=== PATIENT | female | born 1960 | race Caucasian/White ===

== ENCOUNTER 2016-06-03 16:35 | Emergency (ER) | payer BC ==
[2016-06-03 18:10] VITALS: BP 141/80
--- NOTE | 2016-06-03 18:41 | UC ---
Lower Extremity/Ankle HPI - HPI Summary HPI Summary: 55 y/o female c/o left dorsal discomfort and swelling over the third-fifth proximal metatarsal area x 3 weeks. Pain to palpation, and with dorsi-flexion of the left foot. Symptoms have failed to improve. - History of Current Complaint Chief Complaint: UC Stated Complaint: FOOT INJURY Time Seen by Provider: 06/03/16 18:26 Hx Obtained From: Patient Hx Last Menstrual Period: 3 months ago ?: No Onset/Duration: Gradual Onset Severity Initially: Mild Severity Currently: Mild Pain Intensity: 3 Pain Scale Used: 0-10 Numeric Aggravating Factor(s): Ambulation Alleviating Factor(s): Rest, Elevation, OTC Meds Able to Bear Weight: Yes - Allergies/Home Medications Allergies/Adverse Reactions: Allergies Allergy/AdvReac Type Severity Reaction Status Date / Time No Known Allergies Allergy Verified 06/03/16 18:03 PMH/Surg Hx/FS Hx/Imm Hx Previously Healthy: Yes Endocrine History Of: Reports: Thyroid Disease - Nodule Denies: Diabetes Cardiovascular History Of: Denies: Cardiac Disorders, Hypertension Respiratory History Of: Denies: COPD, Asthma GI/ History Of: Denies: Ulcer Cancer History Of: Denies: Breast Cancer - Surgical History Surgical History: Yes Surgery Procedure, Year, and Place: 1995 - Family History Known Family History: Positive: None - Social History Occupation: Employed Full-time Lives: With Family Alcohol Use: Daily Alcohol Amount: most days Substance Use Type: None Smoking Status (MU): Never Smoked Tobacco Have You Smoked in the Last Year: No - Immunization History Most Recent Influenza Vaccination: fall 2015 Review of Systems Constitutional: Negative Skin: Other - Swelling over the 3rd-5th left metatarsals Eyes: Negative ENT: Negative Respiratory: Negative Cardiovascular: Negative Gastrointestinal: Negative Genitourinary: Negative Motor: Negative, Other - Full ROM, equal strength b/l in lower extremities. Movement increases pain. Neurovascular: Negative Musculoskeletal: Edema - Left dorsal 3rd-5th metatarsals Neurological: Negative Psychological: Negative All Other Systems Reviewed And Are Negative: Yes Physical Exam Triage Information Reviewed: Yes Appearance: Well-Appearing, No Pain Distress, Well-Nourished Vital Signs: Initial Vital Signs Temp 98.0 F 06/03/16 18:04 Pulse 58 06/03/16 18:04 Resp 16 06/03/16 18:04 BP 141/80 06/03/16 18:04 Pulse Ox 98 06/03/16 18:04 Vital Signs Reviewed: Yes Eye Exam: Normal Eyes: Positive: Conjunctiva Clear ENT Exam: Normal ENT: Positive: Normal ENT inspection, Hearing grossly normal, Pharynx normal, TMs normal Dental Exam: Normal Neck exam: Normal Neck: Positive: Supple, Nontender, No Lymphadenopathy Respiratory: Positive: Chest non-tender, Lungs clear, Normal breath sounds, No respiratory distress Cardiovascular: Positive: RRR, No Murmur, Pulses Normal Abdominal Exam: Normal Abdomen Description: Positive: Nontender, No Organomegaly, Soft Bowel Sounds: Positive: Present Musculoskeletal: Positive: Strength Intact, ROM Intact, Edema @ - Left metatarsal area, Other: - tender L distal 3rd - 5th MTs Neurological: Positive: Alert, Muscle Tone Normal Psychological Exam: Normal Skin Exam: Normal Lower Extremity Course/Dx - Differential Dx/Diagnosis Provider Diagnoses: left foot pain. suspected left foot stress fracture Discharge - Discharge Plan Condition: Stable Disposition: HOME Patient Education Materials: Foot Sprain (ED) Referrals: Joel Hamlin [Medical Doctor] - Romina Booker MD [Primary Care Provider] - If Needed Preston Leon MD [Medical Doctor] - Additional Instructions: As discussed, follow up with sports medicine or orthopedist.
--- NOTE | 2016-06-03 19:10 | RAD ---
Indication: Tenderness at the head and mid shaft of the fourth metatarsal left foot. 3 views of the foot demonstrates no fracture. No evidence of cortical thickening is noted. IMPRESSION: Unremarkable left foot.
== END 2016-06-03 19:39 | disposition home or self-care (01) ==
LOC: UCEAST 16:35
DX: M79.672 Pain in left foot (principal); M79.89 Other specified soft tissue disorders
CPT/HCPCS: 99212; G0463